=== PATIENT | male | born 1990 | race Caucasian/White ===

== ENCOUNTER 2023-02-24 19:04 | Inpatient (IN) | payer SELFPAY ==
[2023-02-24] MEDS ORDERED: Thiamine 200 MG/2 ML MDV IVPUSH ONE (19:26)
[2023-02-24] MEDS ORDERED: Sodium Chloride 0.9% 1,000 ML IV SCH (19:30)
[2023-02-24] MEDS ORDERED: LORazepam 2 MG/ML SDV IVPUSH ONE ×2 (19:39→21:16)
[2023-02-24 19:55] LABS: HEMATOCRIT 35.2 % (38.3-50.1); HEMOGLOBIN 12.5 g/dL (12.9-17.7); MEAN CORPUSCULAR HEMOGLOBIN 36.1 pg (27.0-33.3); MEAN CORPUSCULAR HGB CONC 35.4 g/dL (28.7-35.3); MEAN CORPUSCULAR VOLUME 102.2 fL (80.8-98.7); PLATELET COUNT,PLT 46 x10(3)uL (117-477); RED BLOOD CELL COUNT 3.45 x10(6)uL (3.90-5.90); RED CELL DISTRIBUTION WIDTH 15.4 % (12.4-15.0); WHITE BLOOD CELL COUNT,WBC 9.6 x10-3/uL (3.2-10.1)
[2023-02-24 19:57] LABS: BILIRUBIN,URINE SMALL (NEGATIVE); GLUCOSE,URINE >1000 mg/dL (NORMAL); KETONES,URINE 15 mg/dL (NEGATIVE); LEUKOCYTE ESTERASE,URINE MODERATE (NEGATIVE); NITRITE,URINE NEGATIVE (NEGATIVE); OCCULT BLOOD,URINE LARGE (NEGATIVE); PH,URINE 6.5 (5.0-6.5); PROTEIN,URINE 500 mg/dL (NEGATIVE); UROBILINOGEN,URINE 4 mg/dL (NEGATIVE)
[2023-02-24 20:07] LABS: COLOR,URINE RED (YELLOW)
[2023-02-24 20:08] LABS: APPEARANCE,URINE CLOUDY (CLEAR); BACTERIA,URINE FEW (NS); RBC,URINE PACKED (0-5); SQUAMOUS EPITHELIAL CELLS,UR OCCASIONAL (NS,R,O)
[2023-02-24 20:14] LABS: A/G RATIO 0.6; ALANINE AMINOTRANSFERASE,ALT 64 U/L (12-36); ALBUMIN 3.2 g/dL (3.5-5.2); ALKALINE PHOSPHATASE 336 IU/L (56-112); BILIRUBIN TOTAL 7.6 mg/dL (0.1-1.3); BLOOD UREA NITROGEN,BUN 4 mg/dL (7-18); BUN/CREATININE RATIO 2.7 (9-20); CALCIUM 9.4 mg/dL (8.6-10.2); CARBON DIOXIDE,CO2 30 mmol/L (21-32); CREATININE 1.5 mg/dL (0.70-1.30); ESTIMATED GFR 64 mL/min (>60); GLUCOSE RANDOM 276 mg/dL (80-116); POTASSIUM,K 2.9 mmol/L (3.5-5.3); PROTEIN TOTAL,TP 8.5 g/dL (6.0-8.0); SODIUM,NA 132 mmol/L (135-145)
[2023-02-24 20:16] LABS: ASPARTATE AMNIOTRANSFERASE,AST 307 IU/L (5-25); CHLORIDE,CL 89 mmol/L (100-110)
[2023-02-24 20:19] LABS: BAND PERCENT MAN 1 % (0-6); LYMPHOCYTES PERCENT MAN 10 % (13-37); SEG NEUTROPHILS PERCENT MAN 83 % (46-82)
[2023-02-24 20:20] LABS: BASOPHILS PERCENT MAN 1 % (0-2); METAMYELOCYTE PERCENT MAN 1 % (0-0); MONOCYTES PERCENT MAN 4 % (4-12)
[2023-02-24] MEDS ORDERED: Iopamidol 755 Mg/ML 100 ML Bottle IV SCH (21:00)
[2023-02-24] MEDS ORDERED: Ketorolac 30 MG/ML SDV IVPUSH ONE (21:16)
[2023-02-24] MEDS ORDERED: Ketorolac 30 MG/ML SDV IM PRN (21:51)
[2023-02-24] MEDS ORDERED: Morphine 2 MG/ML SYRINGE IVPUSH PRN (21:51)
[2023-02-24] MEDS ORDERED: Naloxone 0.4 MG/ML SDV IVPUSH PRN (21:51)
[2023-02-24] MEDS ORDERED: Enoxaparin 40 MG/0.4 ML Syringe SUBCUT SCH ×2 (22:00→22:15)
[2023-02-24] MEDS: NS + KCl 20mEq/L 1,000 ML IV SCH (22:12)
[2023-02-24] MEDS: cefTRIAXone 2 GM Vial IVPUSH SCH (23:30)
[2023-02-25] MEDS: Sodium Chloride 0.9% 10 ML Syringe FLUSH PRN ×5 (00:05→23:13)
[2023-02-25] MEDS: NS + KCl 20mEq/L 1,000 ML IV SCH ×3 (04:46→20:45)
[2023-02-25 06:38] LABS: BASOPHILS PERCENT AUTO 0.3 % (0.3-3.8); EOSINOPHILS PERCENT AUTO 0.3 % (0.1-6.8); HEMOGLOBIN 12.5 g/dL (12.9-17.7); LYMPHOCYTES ABSOLUTE AUTO 0.6 x10-3/uL (0.5-4.5); LYMPHOCYTES PERCENT AUTO 7.3 % (15.8-45.3); MEAN CORPUSCULAR HEMOGLOBIN 36.4 pg (27.0-33.3); MEAN CORPUSCULAR HGB CONC 35.6 g/dL (28.7-35.3); MEAN PLATELET VOLUME 9.8 fL (6.7-11.0); MONOCYTES ABSOLUTE AUTO 0.6 x10-3/uL (0.0-1.2); MONOCYTES PERCENT AUTO 7.8 % (5.5-15.2); NEUTROPHILS ABSOLUTE AUTO 6.6 x10-3/uL (1.7-6.9); NEUTROPHILS PERCENT AUTO 84.3 % (40.3-71.8); PLATELET COUNT,PLT 44 x10(3)uL (117-477); RED BLOOD CELL COUNT 3.43 x10(6)uL (3.90-5.90); RED CELL DISTRIBUTION WIDTH 15.2 % (12.4-15.0); WHITE BLOOD CELL COUNT,WBC 7.8 x10-3/uL (3.2-10.1)
[2023-02-25 07:01] LABS: A/G RATIO 0.6; ALANINE AMINOTRANSFERASE,ALT 50 U/L (12-36); ALBUMIN 2.9 g/dL (3.5-5.2); ALKALINE PHOSPHATASE 287 IU/L (56-112); BILIRUBIN TOTAL 9.4 mg/dL (0.1-1.3); BLOOD UREA NITROGEN,BUN 4 mg/dL (7-18); BUN/CREATININE RATIO 5.7 (9-20); CALCIUM 8.9 mg/dL (8.6-10.2); CARBON DIOXIDE,CO2 30 mmol/L (21-32); CHLORIDE,CL 94 mmol/L (100-110); CREATININE 0.7 mg/dL (0.70-1.30); EST CRCL DRUG DOSING (CG) 159.33 mL/min; ESTIMATED GFR 127 mL/min (>60); GLUCOSE RANDOM 145 mg/dL (80-116); POTASSIUM,K 2.9 mmol/L (3.5-5.3); PROTEIN TOTAL,TP 7.9 g/dL (6.0-8.0); SODIUM,NA 133 mmol/L (135-145)
[2023-02-25 07:04] LABS: MAGNESIUM 0.9 mg/dL (1.8-2.5)
[2023-02-25 07:05] LABS: ASPARTATE AMNIOTRANSFERASE,AST 259 IU/L (5-25)
[2023-02-25] MEDS ORDERED: Magnesium Sulfate/Water 4 GM in Premix Bag 1 BAG IV ONE (08:19)
[2023-02-25] MEDS ORDERED: Potassium Chloride 20 MEQ Tab.ER PO ONE (08:19)
[2023-02-25] MEDS ORDERED: Potassium Chloride 20 MEQ in Premix Bag 1 BAG IV ONE ×2 (08:20→11:30)
[2023-02-25] MEDS: LORazepam 2 MG/ML SDV IV PRN ×2 (09:25→19:58)
[2023-02-25 09:48] LABS: BILIRUBIN DIRECT 6.08 mg/dL (0.10-0.20); BILIRUBIN INDIRECT 3.3 mg/dL (0.0-1.0); BILIRUBIN TOTAL 9.4 mg/dL (0.1-1.3)
[2023-02-25 10:02] LABS: INR 1.25 (1.00-1.24); PROTHROMBIN TIME 12.8 sec (9.0-11.1)
[2023-02-25] MEDS: Ketorolac 30 MG/ML SDV IVPUSH PRN (19:52)
[2023-02-25] MEDS: cefTRIAXone 2 GM Vial IVPUSH SCH (22:57)
[2023-02-26] MEDS: Ketorolac 30 MG/ML SDV IVPUSH PRN ×2 (02:42→09:18)
[2023-02-26] MEDS: Sodium Chloride 0.9% 10 ML Syringe FLUSH PRN ×2 (02:46→09:17)
[2023-02-26] MEDS: NS + KCl 20mEq/L 1,000 ML IV SCH (03:30)
[2023-02-26 06:57] LABS: BASOPHILS PERCENT AUTO 0.4 % (0.3-3.8); EOSINOPHILS ABSOLUTE AUTO 0.1 x10-3/uL (0.0-0.6); EOSINOPHILS PERCENT AUTO 0.8 % (0.1-6.8); HEMATOCRIT 35.9 % (38.3-50.1); HEMOGLOBIN 12.5 g/dL (12.9-17.7); LYMPHOCYTES ABSOLUTE AUTO 0.7 x10-3/uL (0.5-4.5); LYMPHOCYTES PERCENT AUTO 9.7 % (15.8-45.3); MEAN CORPUSCULAR HEMOGLOBIN 36.1 pg (27.0-33.3); MEAN CORPUSCULAR HGB CONC 34.9 g/dL (28.7-35.3); MEAN PLATELET VOLUME 10.4 fL (6.7-11.0); MONOCYTES ABSOLUTE AUTO 0.5 x10-3/uL (0.0-1.2); MONOCYTES PERCENT AUTO 7.1 % (5.5-15.2); PLATELET COUNT,PLT 45 x10(3)uL (117-477); RED BLOOD CELL COUNT 3.47 x10(6)uL (3.90-5.90); RED CELL DISTRIBUTION WIDTH 15.6 % (12.4-15.0); WHITE BLOOD CELL COUNT,WBC 7.3 x10-3/uL (3.2-10.1)
[2023-02-26 07:02] LABS: MEAN CORPUSCULAR VOLUME 103.5 fL (80.8-98.7)
[2023-02-26 07:14] LABS: A/G RATIO 0.6; ALANINE AMINOTRANSFERASE,ALT 50 U/L (12-36); ALBUMIN 2.8 g/dL (3.5-5.2); ALKALINE PHOSPHATASE 276 IU/L (56-112); BILIRUBIN DIRECT 10.09 mg/dL (0.10-0.20); BILIRUBIN INDIRECT 3.6 mg/dL (0.0-1.0); BLOOD UREA NITROGEN,BUN 5 mg/dL (7-18); BUN/CREATININE RATIO 7.1 (9-20); CALCIUM 8.9 mg/dL (8.6-10.2); CARBON DIOXIDE,CO2 25 mmol/L (21-32); CHLORIDE,CL 99 mmol/L (100-110); CREATININE 0.7 mg/dL (0.70-1.30); EST CRCL DRUG DOSING (CG) 159.33 mL/min; ESTIMATED GFR 127 mL/min (>60); GLUCOSE RANDOM 116 mg/dL (80-116); MAGNESIUM 1.7 mg/dL (1.8-2.5); POTASSIUM,K 3.5 mmol/L (3.5-5.3); PROTEIN TOTAL,TP 7.6 g/dL (6.0-8.0); SODIUM,NA 133 mmol/L (135-145)
[2023-02-26 07:23] LABS: BILIRUBIN TOTAL 13.7 mg/dL (0.1-1.3)
[2023-02-26 07:24] LABS: ASPARTATE AMNIOTRANSFERASE,AST 231 IU/L (5-25)
[2023-02-26] MEDS ORDERED: Magnesium Sulfate/Water 2 GM in Premix Bag 1 BAG IV ONE (08:38)
[2023-02-26 14:18] LABS: HEPATITIS B SURFACE ANTIGEN Negative (Negative)
[2023-02-26 19:04] LABS: HEPATITIS C AB CIA INTERP Negative (Negative); HEPATITIS C ANTIBODY CIA INDEX 0.09 IV
== END 2023-02-26 11:25 | disposition left against medical advice (07) | DRG 690 ==
LOC: FB.ED 19:04 → FB.MS 23:07
PROVIDERS: ADMIT Family Medicine; ATTEND Family Medicine
DX: N30.01 Acute cystitis with hematuria (principal); F10.139 Alcohol abuse with withdrawal, unspecified; I85.00 Esophageal varices without bleeding; K76.6 Portal hypertension; E87.1 Hypo-osmolality and hyponatremia; F41.9 Anxiety disorder, unspecified; R73.03 Prediabetes; K70.9 Alcoholic liver disease, unspecified; D69.6 Thrombocytopenia, unspecified; D53.9 Nutritional anemia, unspecified; R31.0 Gross hematuria; E87.6 Hypokalemia; E83.42 Hypomagnesemia; F17.210 Nicotine dependence, cigarettes, uncomplicated; K75.81 Nonalcoholic steatohepatitis (NASH); I10 Essential (primary) hypertension; Z79.899 Other long term (current) drug therapy
CPT/HCPCS: 36415; 74177; 76705; 76770; 80053; 80143; 80307; 81001; 82247; 82248; 83690; 83735; 85025; 85610; 86803; 87340; 96361; 96374; 96375; 96376; 99222; 99238; 99285-25; A9270-GY; J0696; J1885; J2060; J2270; J3411; J3475; J3480; J3490; J7030; Q9967

== ENCOUNTER 2023-03-16 10:25 | Emergency (ER) | payer SELFPAY ==
[2023-03-16] MEDS: Sodium Chloride 0.9% 1,000 ML IV SCH ×4 (10:50→19:28)
[2023-03-16] MEDS ORDERED: Sodium Chloride 0.9% 10 ML Syringe FLUSH PRN (10:51)
[2023-03-16 11:10] LABS: PTT,PARTIAL THROMBOPLSTIN TIME 35.9 SECONDS (24.4-33.2)
[2023-03-16 11:11] LABS: HEMOGLOBIN 11.1 g/dL (12.9-17.7)
[2023-03-16 11:13] LABS: WHITE BLOOD CELL COUNT,WBC 12.8 x10-3/uL (3.2-10.1)
[2023-03-16 11:14] LABS: HEMATOCRIT 30.6 % (38.3-50.1); INR 1.23 (1.00-1.24); MEAN CORPUSCULAR HEMOGLOBIN 36.2 pg (27.0-33.3); MEAN CORPUSCULAR HGB CONC 36.4 g/dL (28.7-35.3); MEAN CORPUSCULAR VOLUME 99.7 fL (80.8-98.7); MEAN PLATELET VOLUME 10.4 fL (6.7-11.0); PLATELET COUNT,PLT 90 x10(3)uL (117-477); PROTHROMBIN TIME 12.6 sec (9.0-11.1); RED BLOOD CELL COUNT 3.07 x10(6)uL (3.90-5.90); RED CELL DISTRIBUTION WIDTH 16.1 % (12.4-15.0)
[2023-03-16 11:20] LABS: A/G RATIO 0.4; ALANINE AMINOTRANSFERASE,ALT 41 U/L (12-36); ALKALINE PHOSPHATASE 352 IU/L (56-112); AMYLASE 53 U/L (25-115); BLOOD UREA NITROGEN,BUN 26 mg/dL (7-18); BUN/CREATININE RATIO 6.7 (9-20); CALCIUM 7.2 mg/dL (8.6-10.2); CARBON DIOXIDE,CO2 21 mmol/L (21-32); EST CRCL DRUG DOSING (CG) 21.39 mL/min; ESTIMATED GFR 20 mL/min (>60); GLUCOSE RANDOM 156 mg/dL (80-116); PROTEIN TOTAL,TP 6.5 g/dL (6.0-8.0); SODIUM,NA 112 mmol/L (135-145)
[2023-03-16 11:21] LABS: ASPARTATE AMNIOTRANSFERASE,AST 155 IU/L (5-25); BILIRUBIN TOTAL 17.8 mg/dL (0.1-1.3); CHLORIDE,CL 72 mmol/L (100-110); CREATININE 3.9 mg/dL (0.70-1.30)
[2023-03-16 11:22] LABS: TROPONIN I 270.5 pg/mL (4.0-60.3)
[2023-03-16 11:28] LABS: LYMPHOCYTES PERCENT MAN 17 % (13-37); MONOCYTES PERCENT MAN 8 % (4-12); SEG NEUTROPHILS PERCENT MAN 75 % (46-82)
[2023-03-16 11:32] LABS: LACTIC ACID 5.3 mmol/L (0.4-2.0)
[2023-03-16] MEDS ORDERED: Piperacillin/Tazobactam 3.375 GM in Sodium Chloride 0.9% 50 ML IV STA ×2 (11:58→20:08)
[2023-03-16] MEDS ORDERED: Hydrocortisone Sodium Succinate 100 MG/2 ML SDV IVPUSH ONE (12:05)
[2023-03-16] MEDS ORDERED: VANCOmycin 1 GM/200 ML 1 GM in Premix Bag 1 BAG IV ONE (12:40)
[2023-03-16] MEDS ORDERED: Ondansetron 4 MG/2 ML SDV IVPUSH ONE (13:14)
[2023-03-16] MEDS ORDERED: fentaNYL 100 MCG/2 ML SDV IVPUSH STA (13:21)
[2023-03-16] MEDS ORDERED: Pantoprazole 40 MG Vial IVPUSH ONE (13:26)
[2023-03-16] MEDS ORDERED: Sodium Chloride 0.9% 1,000 ML IV SCH ×2 (13:45→14:00)
[2023-03-16] MEDS ORDERED: Magnesium Sulfate/Water 2 GM in Premix Bag 1 BAG IV ONE (14:03)
[2023-03-16] MEDS ORDERED: Potassium Chloride 20 MEQ Tab.ER PO ONE ×4 (14:03→19:16)
[2023-03-16 15:04] LABS: BLOOD UREA NITROGEN,BUN 27 mg/dL (7-18); BUN/CREATININE RATIO 7.3 (9-20); CALCIUM 6.7 mg/dL (8.6-10.2); CARBON DIOXIDE,CO2 22 mmol/L (21-32); EST CRCL DRUG DOSING (CG) 22.55 mL/min; ESTIMATED GFR 22 mL/min (>60); GLUCOSE RANDOM 123 mg/dL (80-116)
[2023-03-16 15:06] LABS: CHLORIDE,CL 77 mmol/L (100-110); CREATININE 3.7 mg/dL (0.70-1.30); POTASSIUM,K 2.3 mmol/L (3.5-5.3); SODIUM,NA 115 mmol/L (135-145)
[2023-03-16 15:31] LABS: BILIRUBIN,URINE MODERATE (NEGATIVE); GLUCOSE,URINE NORMAL (NORMAL); KETONES,URINE NEGATIVE (NEGATIVE); LEUKOCYTE ESTERASE,URINE NEGATIVE (NEGATIVE); NITRITE,URINE NEGATIVE (NEGATIVE); OCCULT BLOOD,URINE LARGE (NEGATIVE); PROTEIN,URINE TRACE mg/dL (NEGATIVE); UROBILINOGEN,URINE 4 mg/dL (NEGATIVE)
[2023-03-16 15:37] LABS: AMORPHOUS SEDIMENT,URINE FEW; APPEARANCE,URINE SLIGHTLY CLOUDY (CLEAR); BACTERIA,URINE FEW (NS); COLOR,URINE YELLOW (YELLOW); HYALINE CASTS,URINE FEW (NS); SQUAMOUS EPITHELIAL CELLS,UR FEW (NS,R,O); WBC,URINE 0-5 (0-5)
[2023-03-16 15:46] LABS: AMMONIA, PLASMA 76
[2023-03-16] MEDS ORDERED: Potassium Chloride 10 MEQ in Premix Bag 1 BAG IV ONE (19:30)
[2023-03-16 20:01] LABS: LACTIC ACID 2.1 mmol/L (0.4-2.0)
== END 2023-03-16 20:23 ==
LOC: FB.ED 10:25
DX: E87.6 Hypokalemia (principal); E87.1 Hypo-osmolality and hyponatremia; K76.6 Portal hypertension; K29.70 Gastritis, unspecified, without bleeding; K70.9 Alcoholic liver disease, unspecified; K27.9 Peptic ulcer, site unspecified, unspecified as acute or chronic, without hemorrhage or perforation; F10.129 Alcohol abuse with intoxication, unspecified; F17.210 Nicotine dependence, cigarettes, uncomplicated; R06.02 Shortness of breath; Z79.899 Other long term (current) drug therapy; W01.0XXA Fall on same level from slipping, tripping and stumbling without subsequent striking against object, initial encounter
CPT/HCPCS: 36415; 71045; 72128; 72131; 74176; 80048; 80053; 80307; 81001; 82140; 82150; 82272; 83605; 83690; 83735; 83880; 84484; 85025; 85610; 85730; 87040; 93005; 93010; 96361; 96365; 96367; 96375; 99285; 99285-25; A9270-GY; C9113; J1720; J2405; J2543; J3010; J3370; J3475; J3480; J3490; J7030

== ENCOUNTER 2023-06-29 16:31 | Emergency (ER) | payer BC ==
[2023-06-29 17:19] LABS: BASOPHILS PERCENT AUTO 0.5 % (0.3-3.8); EOSINOPHILS PERCENT AUTO 0.4 % (0.1-6.8); HEMATOCRIT 49.7 % (38.3-50.1); HEMOGLOBIN 17.1 g/dL (12.9-17.7); LYMPHOCYTES PERCENT AUTO 22.9 % (15.8-45.3); MEAN CORPUSCULAR HEMOGLOBIN 31.5 pg (27.0-33.3); MEAN CORPUSCULAR HGB CONC 34.3 g/dL (28.7-35.3); MEAN CORPUSCULAR VOLUME 91.7 fL (80.8-98.7); MEAN PLATELET VOLUME 8.7 fL (6.7-11.0); MONOCYTES ABSOLUTE AUTO 0.3 x10-3/uL (0.0-1.2); MONOCYTES PERCENT AUTO 3.5 % (5.5-15.2); NEUTROPHILS ABSOLUTE AUTO 6.2 x10-3/uL (1.7-6.9); NEUTROPHILS PERCENT AUTO 72.7 % (40.3-71.8); PLATELET COUNT,PLT 166 x10(3)uL (117-477); RED BLOOD CELL COUNT 5.42 x10(6)uL (3.90-5.90); RED CELL DISTRIBUTION WIDTH 14.5 % (12.4-15.0); WHITE BLOOD CELL COUNT,WBC 8.5 x10-3/uL (3.2-10.1)
[2023-06-29 17:22] LABS: BLOOD UREA NITROGEN,BUN 4 mg/dL (7-18); BUN/CREATININE RATIO 3.6 (9-20); CALCIUM 9.5 mg/dL (8.6-10.2); CARBON DIOXIDE,CO2 24 mmol/L (21-32); CHLORIDE,CL 104 mmol/L (100-110); CREATININE 1.1 mg/dL (0.70-1.30); EST CRCL DRUG DOSING (CG) 103.63 mL/min; ESTIMATED GFR 92 mL/min (>60); GLUCOSE RANDOM 151 mg/dL (80-116); POTASSIUM,K 3.3 mmol/L (3.5-5.3); SODIUM,NA 144 mmol/L (135-145)
[2023-06-29 17:27] LABS: A/G RATIO 0.9; ALANINE AMINOTRANSFERASE,ALT 31 U/L (12-36); ALKALINE PHOSPHATASE 239 IU/L (56-112); ASPARTATE AMNIOTRANSFERASE,AST 42 IU/L (5-25); BILIRUBIN TOTAL 1.4 mg/dL (0.1-1.3); PROTEIN TOTAL,TP 8.7 g/dL (6.0-8.0); SALICYLATE 0.7 mg/dL (<2.8)
[2023-06-29 17:33] LABS: TSH ULTRASENSITIVE 1.37 IU/mL (0.36-3.74)
[2023-06-29 17:34] LABS: ETHANOL BLOOD MEDICAL 0.21 % (<0.03)
[2023-06-29 17:39] LABS: ACETAMINOPHEN < 2 ug/mL (<2)
[2023-06-29] MEDS: Potassium Chloride 20 MEQ Tab.ER PO STA (18:17)
[2023-06-29] MEDS: Metoprolol Tartrate 50 MG Tab PO ONE (18:18)
[2023-07-01 17:14] LABS: THYROXINE FREE 1.2 ng/dL (0.9-1.7)
== END 2023-06-29 18:40 | disposition home or self-care (01) ==
LOC: FB.ED 16:31
DX: K70.9 Alcoholic liver disease, unspecified (principal); F10.120 Alcohol abuse with intoxication, uncomplicated; I10 Essential (primary) hypertension; F17.210 Nicotine dependence, cigarettes, uncomplicated; Z79.899 Other long term (current) drug therapy; Y90.9 Presence of alcohol in blood, level not specified
CPT/HCPCS: 36415; 80053; 80143; 80179; 80307; 84439; 84443; 85025; 99283; 99284; A9270-GY

== ENCOUNTER 2024-04-03 05:42 | Emergency (ER) | payer BC, OTHER ==
[2024-04-03] MEDS ORDERED: hydrOXYzine HCl 50 MG/ML SDV IM ONE (06:16)
[2024-04-03 06:38] LABS: HEMOGLOBIN 9.6 g/dL (12.9-17.7); MEAN CORPUSCULAR HGB CONC 30.6 g/dL (28.7-35.3); RED CELL DISTRIBUTION WIDTH 20.4 % (12.4-15.0)
[2024-04-03 06:40] LABS: HEMATOCRIT 31.5 % (38.3-50.1); MEAN CORPUSCULAR HEMOGLOBIN 19.7 pg (27.0-33.3); MEAN CORPUSCULAR VOLUME 64.3 fL (80.8-98.7); MEAN PLATELET VOLUME 8.6 fL (6.7-11.0); WHITE BLOOD CELL COUNT,WBC 4.1 x10-3/uL (3.2-10.1)
[2024-04-03] MEDS: Diazepam 5 MG Tab PO ONE (06:40)
[2024-04-03 06:41] LABS: BLOOD UREA NITROGEN,BUN 8 mg/dL (7-18); CALCIUM 9.2 mg/dL (8.6-10.2); CARBON DIOXIDE,CO2 29 mmol/L (21-32); CHLORIDE,CL 99 mmol/L (100-110); EST CRCL DRUG DOSING (CG) 103.55 mL/min; ESTIMATED GFR 103 mL/min (>60); GLUCOSE RANDOM 115 mg/dL (80-116); POTASSIUM,K 3.8 mmol/L (3.5-5.3); SODIUM,NA 141 mmol/L (135-145)
[2024-04-03 06:53] LABS: A/G RATIO 0.8; ALANINE AMINOTRANSFERASE,ALT 117 U/L (12-36); ALBUMIN 4.2 g/dL (3.5-5.2); ALKALINE PHOSPHATASE 166 IU/L (56-112); BILIRUBIN TOTAL 3.2 mg/dL (0.1-1.3); MAGNESIUM 1.7 mg/dL (1.8-2.5); PROTEIN TOTAL,TP 9.3 g/dL (6.0-8.0)
[2024-04-03 06:56] LABS: ASPARTATE AMNIOTRANSFERASE,AST 282 IU/L (5-25)
[2024-04-03 06:58] LABS: PLATELET COUNT,PLT 52 x10(3)uL (117-477)
[2024-04-03 07:25] LABS: HYPOCHROMASIA MODERATE; LYMPHOCYTES PERCENT MAN 22 % (13-37); MONOCYTES PERCENT MAN 2 % (4-12); SEG NEUTROPHILS PERCENT MAN 76 % (46-82)
[2024-04-03 07:26] LABS: ANISOCYTOSIS FEW; POIKILOCYTOSIS FEW; TARGET CELLS FEW
[2024-04-03 07:27] LABS: MICROCYTOSIS FEW
== END 2024-04-03 07:00 | disposition home or self-care (01) ==
LOC: FB.ED 05:42
DX: F10.239 Alcohol dependence with withdrawal, unspecified (principal); F10.229 Alcohol dependence with intoxication, unspecified; K70.9 Alcoholic liver disease, unspecified; Y90.9 Presence of alcohol in blood, level not specified; I10 Essential (primary) hypertension; F17.210 Nicotine dependence, cigarettes, uncomplicated
CPT/HCPCS: 36415; 80053; 80307; 83735; 84100; 85025; 99284; A9270

== ENCOUNTER 2024-04-06 11:35 | Emergency (ER) | payer BC, OTHER ==
[2024-04-06 12:22] LABS: HEMOGLOBIN 8.7 g/dL (12.9-17.7); MEAN CORPUSCULAR HGB CONC 30.9 g/dL (28.7-35.3); MEAN PLATELET VOLUME 9.2 fL (6.7-11.0); RED BLOOD CELL COUNT 4.33 x10(6)uL (3.90-5.90)
[2024-04-06 12:24] LABS: HEMATOCRIT 28.2 % (38.3-50.1); MEAN CORPUSCULAR HEMOGLOBIN 20.1 pg (27.0-33.3); MEAN CORPUSCULAR VOLUME 65.1 fL (80.8-98.7); RED CELL DISTRIBUTION WIDTH 20.5 % (12.4-15.0); WHITE BLOOD CELL COUNT,WBC 4.6 x10-3/uL (3.2-10.1)
[2024-04-06 12:28] LABS: BLOOD UREA NITROGEN,BUN 13 mg/dL (7-18); BUN/CREATININE RATIO 10.8 (9-20); CALCIUM 10.5 mg/dL (8.6-10.2); CARBON DIOXIDE,CO2 27 mmol/L (21-32); CHLORIDE,CL 97 mmol/L (100-110); CREATININE 1.2 mg/dL (0.70-1.30); ESTIMATED GFR 83 mL/min (>60); GLUCOSE RANDOM 90 mg/dL (80-116); PLATELET COUNT,PLT 34 x10(3)uL (117-477); POTASSIUM,K 3.9 mmol/L (3.5-5.3); SODIUM,NA 135 mmol/L (135-145)
[2024-04-06 12:32] LABS: INR 1.21 (1.00-1.24); PROTHROMBIN TIME 12.4 sec (9.0-11.1)
[2024-04-06 12:33] LABS: PTT,PARTIAL THROMBOPLSTIN TIME 32.1 SECONDS (24.4-33.2)
[2024-04-06 12:36] LABS: LACTIC ACID 2.4 mmol/L (0.4-2.0)
[2024-04-06 12:38] LABS: A/G RATIO 0.9; ALANINE AMINOTRANSFERASE,ALT 92 U/L (12-36); ALBUMIN 4.1 g/dL (3.5-5.2); ALKALINE PHOSPHATASE 163 IU/L (56-112); BILIRUBIN TOTAL 6.6 mg/dL (0.1-1.3); PROTEIN TOTAL,TP 8.8 g/dL (6.0-8.0)
[2024-04-06 12:41] LABS: ASPARTATE AMNIOTRANSFERASE,AST 152 IU/L (5-25); MAGNESIUM 1.2 mg/dL (1.8-2.5)
[2024-04-06] MEDS ORDERED: Sodium Chloride 0.9% 10 ML Syringe FLUSH PRN (12:53)
[2024-04-06 13:07] LABS: BAND PERCENT MAN 3 % (0-6); EOSINOPHILS PERCENT MAN 4 % (0-5); HYPOCHROMASIA MODERATE; LYMPHOCYTES PERCENT MAN 14 % (13-37); METAMYELOCYTE PERCENT MAN 3 % (0-0); MONOCYTES PERCENT MAN 3 % (4-12); MYELOCYTE PERCENT MAN 3 % (0-0); SEG NEUTROPHILS PERCENT MAN 70 % (46-82); TARGET CELLS MANY
[2024-04-06] MEDS: Sodium Chloride 0.9% 1,000 ML IV ONE (13:17)
[2024-04-06] MEDS: Magnesium Sulf/Wat 2 GM/50 mL 2 GM in Premix Bag 1 BAG IV ONE (13:21)
[2024-04-06] MEDS: Magnesium Oxide 400 MG Tab PO ONE (13:22)
== END 2024-04-06 16:35 ==
LOC: FB.ED 11:35
DX: K70.10 Alcoholic hepatitis without ascites (principal); D50.9 Iron deficiency anemia, unspecified; D69.6 Thrombocytopenia, unspecified; E80.6 Other disorders of bilirubin metabolism; F10.10 Alcohol abuse, uncomplicated; I10 Essential (primary) hypertension; Z79.899 Other long term (current) drug therapy; F17.210 Nicotine dependence, cigarettes, uncomplicated; Y90.9 Presence of alcohol in blood, level not specified
CPT/HCPCS: 36415; 80053; 82272; 83605; 83735; 85025; 85610; 85730; 86140; 93005; 93010; 96365; 99284; 99285; A9270; J3475; J7030

== ENCOUNTER 2024-04-07 12:15 | Emergency (ER) | payer BC, OTHER ==
[2024-04-07 12:55] LABS: BLOOD UREA NITROGEN,BUN 23 mg/dL (7-18); BUN/CREATININE RATIO 16.4 (9-20); CALCIUM 9.7 mg/dL (8.6-10.2); CARBON DIOXIDE,CO2 23 mmol/L (21-32); CHLORIDE,CL 98 mmol/L (100-110); CREATININE 1.4 mg/dL (0.70-1.30); EST CRCL DRUG DOSING (CG) 78.94 mL/min; ESTIMATED GFR 69 mL/min (>60); GLUCOSE RANDOM 74 mg/dL (80-116); SODIUM,NA 137 mmol/L (135-145)
[2024-04-07] MEDS: Diazepam 5 MG Tab PO ONE (12:55)
[2024-04-07 12:56] LABS: HEMATOCRIT 26.7 % (38.3-50.1); HEMOGLOBIN 8.3 g/dL (12.9-17.7); MEAN CORPUSCULAR HEMOGLOBIN 20.3 pg (27.0-33.3); MEAN CORPUSCULAR VOLUME 65.4 fL (80.8-98.7); MEAN PLATELET VOLUME 9.5 fL (6.7-11.0); PLATELET COUNT,PLT 53 x10(3)uL (117-477); RED BLOOD CELL COUNT 4.09 x10(6)uL (3.90-5.90); RED CELL DISTRIBUTION WIDTH 21.2 % (12.4-15.0); WHITE BLOOD CELL COUNT,WBC 5.4 x10-3/uL (3.2-10.1)
[2024-04-07] MEDS: Sodium Chloride 0.9% 1,000 ML IV SCH (12:56)
[2024-04-07 13:01] LABS: A/G RATIO 0.9; ALANINE AMINOTRANSFERASE,ALT 80 U/L (12-36); ALBUMIN 4.2 g/dL (3.5-5.2); ALKALINE PHOSPHATASE 163 IU/L (56-112); ASPARTATE AMNIOTRANSFERASE,AST 128 IU/L (5-25); BILIRUBIN TOTAL 6.8 mg/dL (0.1-1.3); PROTEIN TOTAL,TP 8.7 g/dL (6.0-8.0)
[2024-04-07 13:09] LABS: TSH ULTRASENSITIVE 2.58 IU/mL (0.36-3.74)
[2024-04-07 13:10] LABS: ETHANOL BLOOD MEDICAL < 0.03 % (<0.03)
[2024-04-07 13:21] LABS: ANISOCYTOSIS MODERATE; EOSINOPHILS PERCENT MAN 2 % (0-5); LYMPHOCYTES PERCENT MAN 11 % (13-37); MONOCYTES PERCENT MAN 9 % (4-12); SEG NEUTROPHILS PERCENT MAN 78 % (46-82)
[2024-04-07 13:22] LABS: HYPOCHROMASIA FEW; MICROCYTOSIS FEW; STOMATOCYTES FEW; TARGET CELLS FEW
[2024-04-07] MEDS: LORazepam 2 MG/ML SDV IVPUSH ONE ×2 (14:18→17:00)
[2024-04-07] MEDS: Sodium Chloride 0.9% 10 ML Syringe FLUSH PRN (14:19)
[2024-04-07 15:07] LABS: MAGNESIUM 1.5 mg/dL (1.8-2.5); PHOSPHORUS 2.8 mg/dL (2.6-4.6)
[2024-04-07] MEDS: Potassium Chloride 20 MEQ Tab.ER PO ONE ×2 (15:08→16:42)
[2024-04-07] MEDS: NS + KCl 20mEq/L 1,000 ML IV SCH (15:08)
[2024-04-07] MEDS ORDERED: Magnesium Sulf 1 GM/2 mL SDV 2 GM in Sodium Chloride 0.9% 50 ML IV ONE (15:47)
[2024-04-07] MEDS: OLANZapine 10 MG Vial IM ONE ×2 (15:53→17:09)
[2024-04-07] MEDS: Magnesium Sulf/Wat 2 GM/50 mL 2 GM in Premix Bag 1 BAG IV ONE (16:01)
[2024-04-07] MEDS: Haloperidol Lactate 5 MG/ML SDV IM ONE (17:38)
[2024-04-07] MEDS: PHENobarbital Sodium 65 MG/ML SDV IVPUSH ONE (17:48)
[2024-04-08 16:33] LABS: AMMONIA, PLASMA 57 umol/L (0-72)
[2024-04-08 19:50] LABS: THYROXINE, TOTAL T4 10.2 ug/dL (4.50-11.70)
== END 2024-04-07 17:37 ==
LOC: FB.ED 12:15
DX: I10 Essential (primary) hypertension (principal); F10.231 Alcohol dependence with withdrawal delirium; K70.9 Alcoholic liver disease, unspecified; E87.6 Hypokalemia; D64.9 Anemia, unspecified; E83.42 Hypomagnesemia; I85.00 Esophageal varices without bleeding; Z79.899 Other long term (current) drug therapy
CPT/HCPCS: 36415; 80053; 80307; 82140; 82550; 83735; 84100; 84436; 84443; 85025; 96361; 96365; 96366; 96368; 96372; 96375; 96376; 99285; 99285-25; A9270-GY; J1630; J2060; J2359; J3360; J3475; J3480; J7030